=== PATIENT | male | born 1990 | race Hispanic/Latino ===

== ENCOUNTER 2017-05-16 02:05 | Emergency (ER) | payer OTHER ==
[2017-05-16 02:11] VITALS: BMI 26.6
--- NOTE | 2017-05-16 02:34 | ED PDOC ---
HPI: Psych/Substance Abuse Time Seen by Provider: 05/16/17 02:11 Chief Complaint (Nursing): Alcohol Ingestion Chief Complaint (Provider): ETOH History Per: Patient Additional Complaint(s): Brought in by [facility] for evaluation of public intoxication Past Medical History Reviewed: Nursing Documentation, Vital Signs Vital Signs: Last Vital Signs Temp 98.0 F 05/16/17 02:11 Pulse 133 H 05/16/17 02:11 Resp 18 05/16/17 02:11 BP 146/99 H 05/16/17 02:11 Pulse Ox 100 05/16/17 02:11 - Medical History PMH: No Chronic Diseases - Family History Family History: States: Unknown Family Hx - Living Arrangements Living Arrangements: With Friends/Others - Social History Current smoker - smoking cessation education provided: No Alcohol: Social Drugs: Cannabis - Allergies Allergies/Adverse Reactions: Allergies Allergy/AdvReac Type Severity Reaction Status Date / Time No Known Allergies Allergy Verified 05/16/17 02:11 Review of Systems ROS Statement: Except As Marked, All Systems Reviewed And Found Negative Physical Exam - Reviewed Nursing Documentation Reviewed: Yes Vital Signs Reviewed: Yes - Physical Exam Appears: Positive for: Well, Non-toxic, No Acute Distress Head Exam: Positive for: ATRAUMATIC, NORMAL INSPECTION, NORMOCEPHALIC Skin: Positive for: Normal Color, Warm, DRY Eye Exam: Positive for: EOMI, Normal appearance, PERRL ENT: Positive for: Normal ENT Inspection Neck: Positive for: Normal, Painless ROM Cardiovascular/Chest: Positive for: Regular Rate, Rhythm Respiratory: Positive for: CNT, Normal Breath Sounds Gastrointestinal/Abdominal: Positive for: Normal Exam, Bowel Sounds, Soft Back: Positive for: Normal Inspection Extremity: Positive for: Normal ROM Neurologic/Psych: Positive for: Alert, Oriented - ECG O2 Sat by Pulse Oximetry: 100 Medical Decision Making Medical Decision Making: Pt awake and alert in ED, ambulating with steady gait Speaking in clear and full sentences. Disposition - Clinical Impression Clinical Impression: Alcohol use - Patient ED Disposition Is Patient to be Admitted: No - Disposition Disposition: Routine/Home Disposition Time: 04:12 Condition: STABLE Instructions: Alcohol Intoxication (ED) Forms: [employer] (Serbian)
[2017-05-16 04:22] VITALS: BP 132/83; PULSE 85; RESP 16; TEMP 97.9; O2SAT 98
== END 2017-05-16 04:24 | disposition home or self-care (01) ==
LOC: H.ER 02:05
DX: F10.10 Alcohol abuse, uncomplicated (principal)

== ENCOUNTER 2017-10-17 16:35 | Emergency (ER) | payer OTHER ==
[2017-10-17 16:35] VITALS: BMI 26.6
[2017-10-17 17:10] VITALS: BP 134/73; PULSE 79; RESP 18; TEMP 98.4; O2SAT 100
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
[2017-10-17] MEDS: Tdap Vaccine 0.5 ml Vial (10-64 yrs) IM ONE (18:34)
[2017-10-17] MEDS: Lidocaine 1% Inj (20ml) IJ ONE (18:35)
== END 2017-10-17 19:29 | disposition home or self-care (01) ==
LOC: H.ER 16:35
DX: S01.112A Laceration without foreign body of left eyelid and periocular area, initial encounter (principal); W22.8XXA Striking against or struck by other objects, initial encounter; Y93.29 Activity, other involving ice and snow; Z23 Encounter for immunization